=== PATIENT | female | born 1975 | race Caucasian/White ===

== ENCOUNTER 2016-10-24 08:35 | Emergency (ER) | payer MEDICAID ==
--- NOTE | 2016-10-24 08:55 | Emergency Department Record ---
History of Present Illness - General Chief Complaint: Fever Stated Complaint: FEVER/VOMITING/DIARRHEA Time Seen by Provider: 10/24/16 08:54 Source: Patient Mode of Arrival: Ambulatory Limitations: No limitations - History of Present Illness Initial Comments: The patient has had 2 days of vomiting and diarrhea with abdominal cramping. She is much better today but needs a work note so decided to come to the ER. Her nausea is improved and there has not been any vomiting since yesterday but she has had a couple of loose stools today. There is no reported abdominal pain or fever. MD Complaint: Fever, Weakness Onset/Timin -: Days(s) Context: Sick contacts Associated Symptoms: Vomiting, Diarrhea Treatments Prior to Arrival: None - Related Data Previous Rx's Medication Instructions Recorded Ondansetron [Zofran Odt] 4 mg SL .Q4-6H PRN #12 tab.rapdis 10/24/16 Sulfamethoxazole/Trimethoprim 1 tab PO BID #6 tab 10/24/16 [Bactrim Ds] Allergies Allergy/AdvReac Type Severity Reaction Status Date / Time No Known Drug Intolerances Allergy Unknown PT UNSURE Verified 10/24/16 09:00 OF REACTION Allergies: Allergy Unknown PT UNSURE Uncoded 10/24/16 08:42 OF REACTION Travel Screening - Travel/Exposure Within Last 30 Days Have you traveled within the last 30 days?: No - Travel/Exposure Within Last Year Have you traveled outside the [place] in the last year?: No - Additonal Travel Details Have you been exposed to anyone with a communicable illness?: No - Travel Symptoms Symptom Screening: None Review of Systems Constitutional: Reports: Fever, Malaise. Denies: Chills Eyes: Denies: Eye discharge ENT: Denies: Congestion Respiratory: Denies: Cough, Dyspnea Cardiovascular: Denies: Arrhythmia, Chest pain Past Medical History - SOCIAL HISTORY Smoking Status: Current every day smoker Alcohol Use: Occassional Drug Use: None - RESPIRATORY Hx Respiratory Disorders: No - CARDIOVASCULAR Hx Cardio Disorders: No - NEURO Hx Neuro Disorders: No - GI Hx GI Disorders: No - Hx Genitourinary Disorders: No - ENDOCRINE Hx Endocrine Disorders: No - MUSCULOSKELETAL Hx Musculoskeletal Disorders: No - PSYCH Hx Psych Problems: No - HEMATOLOGY/ONCOLOGY Hx Hematology/Oncology Disorders: No Family Medical History Any Significant Family History?: No Physical Exam - General General Appearance: Alert, Oriented x3, Cooperative, No acute distress - Head Head exam: Atraumatic, Normocephalic, Normal inspection - Eye Eye exam: Normal appearance, PERRL - Neck Neck exam: Normal inspection, Full ROM. negative: Tenderness - Respiratory Respiratory exam: Normal lung sounds bilaterally. negative: Respiratory distress - Cardiovascular Cardiovascular Exam: Regular rate, Normal rhythm, Normal heart sounds - GI/Abdominal GI/Abdominal exam: Soft, Normal bowel sounds. negative: Guarding, Rebound, Rigid, Tenderness (There is no tenderness in all 4 quads.) - Extremities Extremities exam: Normal inspection, Full ROM, Normal capillary refill. negative: Tenderness Course Vital Signs 10/24/16 08:43 Temperature 97.5 F L Pulse Rate 101 H Respiratory 18 Rate Blood Pressure 120/62 Pulse Ox 99 - Reevaluation(s) Reevaluation #1: The patient is doing much better at this time. She denies any nausea or AP and is drinking water with no difficulty. On exam her abdomen is very soft and nontender in all 4 quads. She feels ready for home and is up ambulating with no pain or discomfort. 10/24/16 09:56 Medical Decision Making - Data Complexity MDM Data: Labs Ordered and/or Reviewed Disposition Disposition: Discharge Clinical Impression: Gastroenteritis Disposition: Home, Self-Care Condition: (1) Good Instructions: Gastroenteritis (ED) Additional Instructions: Please rest today and drink plenty of fluids. Use the Zofran for nausea. Please take the Bactrim as directed. Please return to the ER in 12 - 24 hours for any abdominal pain, fever, or vomiting. Prescriptions: Sulfamethoxazole/Trimethoprim [Bactrim Ds] 1 tab PO BID #6 tab Ondansetron [Zofran Odt] 4 mg SL .Q4-6H PRN #12 tab.rapdis PRN Reason: Nausea Forms: Patient Portal Access Time of Disposition: 09:59
[2016-10-24] MEDS ORDERED: ONDANSETRON 4 MG ODT TABLET SL ONE (08:58)
[2016-10-24 09:37] LABS: URINE APPEARANCE SL CLOUDY; URINE BILIRUBIN NEGATIVE (NEGATIVE); URINE BLOOD MODERATE (NEGATIVE); URINE COLOR YELLOW; URINE GLUCOSE (UA) NEGATIVE (NEGATIVE); URINE KETONE NEGATIVE (NEGATIVE); URINE LEUKOCYTE ESTERASE NEGATIVE (NEGATIVE); URINE NITRITE POSITIVE (NEGATIVE); URINE PROTEIN TRACE (NEGATIVE); URINE UROBILINOGEN 0.2 E.U./dL (0.20 - 1.00)
[2016-10-24 09:43] LABS: HCG,QUALITATIVE URINE NEGATIVE (NEGATIVE); URINE BACTERIA 4+
== END 2016-10-24 10:05 | disposition home or self-care (01) ==
LOC: ER 08:35
DX: K52.9 Noninfective gastroenteritis and colitis, unspecified (principal); R53.1 Weakness
CPT/HCPCS: 81001; 81025; 87086; 87205; 99282